=== PATIENT | female | born 1940 | race Caucasian/White ===

== ENCOUNTER → 2016-05-15 | Outpatient (CLI) | payer MEDICARE, BC | LOC: MAMMO | DX: Z12.31 Encounter for screening mammogram for malignant neoplasm of breast (principal) ==

== ENCOUNTER → 2016-05-15 | Outpatient (CLI) | payer MEDICARE, BC | LOC: RAD 05-01 09:16 | DX: Z13.820 Encounter for screening for osteoporosis (principal); M85.80 Other specified disorders of bone density and structure, unspecified site; M85.89 Other specified disorders of bone density and structure, multiple sites ==

== ENCOUNTER → 2019-08-05 | Outpatient (CLI) | payer MEDICARE, BC | LOC: MAMMO 13:32 | DX: Z12.31 Encounter for screening mammogram for malignant neoplasm of breast (principal) ==

== ENCOUNTER 2021-02-18 20:40 | Emergency (ER) | payer MEDICARE, BC ==
[~2021-02-18] VITALS: Ht 154.9 cm; Wt 47.7 kg
[2021-02-18] MEDS ORDERED: PRILOSEC OTC20 MG PO (20:48)
[2021-02-18] MEDS ORDERED: SYNTHROID0.075 MG PO (20:48)
[2021-02-18] MEDS ORDERED: ESTRACE1 M1 PO (20:49)
[2021-02-18] MEDS ORDERED: ULTRAM50 M1 PO (20:49)
[2021-02-18] MEDS ORDERED: CLONIDINE HYDR0.1 MG PO (20:50)
[2021-02-18] MEDS ORDERED: COZAAR 50MG50 MG/TAB PO (20:50)
[2021-02-18 22:08] LABS: HEMATOCRIT 31.2 % (37.0-47.0); HEMOGLOBIN 10.5 g/dL (12.5-16.0); MEAN CELL VOLUME 97 fl (78-100); MEAN CORPUSCULAR HEMOGLOBIN 33 pg (27-31); MEAN CORPUSCULAR HGB CONC 34 g/dL (33-37); MEAN PLATELET VOLUME 10.5 fl (7.4-10.4); PLATELET COUNT 185 K/mm3 (130-400); RED BLOOD COUNT 3.21 M/mm3 (4.10-5.30); RED CELL DISTRIBUTION WIDTH 11.6 % (11.5-14.5); WHITE BLOOD COUNT 4.9 K/mm3 (4.8-10.8)
[2021-02-18 22:17] LABS: ALBUMIN 3.5 g/dL (3.4-4.8)
[2021-02-18 22:18] LABS: POTASSIUM 3.2 mmol/L (3.5-5.1)
[2021-02-18 22:19] LABS: CALCIUM 8.1 mg/dL (8.3-10.5)
[2021-02-18 22:20] LABS: TOTAL PROTEIN 5.5 g/dL (6.2-8.1)
[2021-02-18 22:22] LABS: TOTAL BILIRUBIN 0.3 mg/dL (0.2-1.2)
[2021-02-18 22:37] LABS: LYMPHOCYTE 5 % (20-51); NEUTROPHILS 91 % (42-75)
[2021-02-18 22:38] LABS: MICROCYTOSIS 1+; MONOCYTE 4 % (3-10); OVALOCYTES 1+
[2021-02-18] MEDS ORDERED: THORAZINE 225 MG/TAB PO (23:23)
[2021-02-19 08:12] VITALS: BP 144/75
== END 2021-02-19 09:40 | disposition home or self-care (01) ==
LOC: ED 20:40
PROVIDERS: Nurse Practitioner Family
DX: U07.1 COVID-19 (principal); R53.83 Other fatigue; Z88.2 Allergy status to sulfonamides
CPT/HCPCS: J1885; J2405; J3230

== ENCOUNTER 2021-03-16 17:46 | Emergency (ER) | payer MEDICARE, BC ==
[~2021-03-16] VITALS: Wt 52.3 kg
[~2021-03-16 17:46] MED LIST: CLONIDINE HYDR0.1 MG PO; COZAAR 50MG50 MG/TAB PO; ESTRACE1 M1 PO; PRILOSEC OTC20 MG PO; SYNTHROID0.075 MG PO; THORAZINE 225 MG/TAB PO; ULTRAM50 M1 PO
[2021-03-16] MEDS ORDERED: PHENERGAN 25 TA25 MG PO (18:16)
[2021-03-16] MEDS ORDERED: CYCLOBENZ5 MG PO ×2 (18:16→18:20)
[2021-03-16] MEDS ORDERED: BUSPIRONE HYDRO10 MG PO (18:18)
[2021-03-16] MEDS ORDERED: THORAZINE 225 MG/TAB PO (18:19)
[2021-03-16 18:20] LABS: ALBUMIN 3.3 g/dL (3.4-4.8); POTASSIUM 3.6 mmol/L (3.5-5.1)
[2021-03-16] MEDS ORDERED: ESTRACE 1MG1 MG/TAB PO (18:20)
[2021-03-16] MEDS ORDERED: LOSARTAN POTASS50 M1 PO (18:20)
[2021-03-16] MEDS ORDERED: LEVOTHYROXIN0.075 MG PO (18:20)
[2021-03-16] MEDS ORDERED: CLONIDINE HYDR0.1 MG PO (18:20)
[2021-03-16 18:21] LABS: CALCIUM 8.7 mg/dL (8.3-10.5)
[2021-03-16] MEDS ORDERED: PRILOSEC 20MG20 MG PO (18:21)
[2021-03-16] MEDS ORDERED: TRAMADOL 50 MG TAB PO (18:21)
[2021-03-16] MEDS ORDERED: ZOFRAN ODT4 MG PO (18:21)
[2021-03-16] MEDS ORDERED: PROGESTERONE100 MG PO (18:21)
[2021-03-16 18:23] LABS: TOTAL PROTEIN 6.3 g/dL (6.2-8.1)
[2021-03-16 18:24] LABS: TOTAL BILIRUBIN 0.5 mg/dL (0.2-1.2)
[2021-03-16 18:33] LABS: PH-URINE 6.5 (5.0 - 8.0); URINE APPEARANCE HAZY; URINE BILIRUBIN NEGATIVE (NEGATIVE); URINE BLOOD NEGATIVE (NEGATIVE); URINE COLOR YELLOW; URINE GLUCOSE NEGATIVE (NEGATIVE); URINE KETONE 2+ (NEGATIVE); URINE LEUKOCYTE ESTERASE NEGATIVE (NEGATIVE); URINE NITRATE NEGATIVE (NEGATIVE); URINE PROTEIN(semi-quant) 1+ (NEGATIVE); URINE UROBILINOGEN NORMAL (NORMAL)
[2021-03-16 21:43] VITALS: BP 183/88
== END 2021-03-16 21:43 | disposition home or self-care (01) ==
LOC: ED 17:46
PROVIDERS: Nurse Practitioner
DX: K59.00 Constipation, unspecified (principal); I10 Essential (primary) hypertension; Z20.822 Contact with and (suspected) exposure to COVID-19; Z79.899 Other long term (current) drug therapy
CPT/HCPCS: J2405; J2550; J7030

== ENCOUNTER 2021-05-19 19:14 | Emergency (ER) | payer MEDICARE, BC ==
[~2021-05-19] VITALS: Ht 154.9 cm; Wt 52.3 kg
[~2021-05-19 19:14] MED LIST changes: +BUSPIRONE HYDRO10 MG PO; +CYCLOBENZ5 MG PO; +ESTRACE 1MG1 MG/TAB PO; +LEVOTHYROXIN0.075 MG PO; +LOSARTAN POTASS50 M1 PO; +PHENERGAN 25 TA25 MG PO; +PRILOSEC 20MG20 MG PO; +PROGESTERONE100 MG PO; +TRAMADOL 50 MG TAB PO; +ZOFRAN ODT4 MG PO
[2021-05-19 20:29] LABS: HEMATOCRIT 32.8 % (37.0-47.0); HEMOGLOBIN 10.8 g/dL (12.5-16.0); MEAN CELL VOLUME 93 fl (78-100); MEAN CORPUSCULAR HEMOGLOBIN 31 pg (27-31); MEAN CORPUSCULAR HGB CONC 33 g/dL (33-37); MEAN PLATELET VOLUME 10.2 fl (7.4-10.4); PLATELET COUNT 290 K/mm3 (130-400); RED BLOOD COUNT 3.53 M/mm3 (4.10-5.30); RED CELL DISTRIBUTION WIDTH 14.3 % (11.5-14.5); WHITE BLOOD COUNT 7.8 K/mm3 (4.8-10.8)
[2021-05-19 20:39] LABS: ALBUMIN 3.7 g/dL (3.4-4.8); POTASSIUM 3.2 mmol/L (3.5-5.1)
[2021-05-19 20:40] LABS: CALCIUM 8.7 mg/dL (8.3-10.5)
[2021-05-19 20:42] LABS: TOTAL PROTEIN 6.1 g/dL (6.2-8.1)
[2021-05-19 20:43] LABS: TOTAL BILIRUBIN 0.6 mg/dL (0.2-1.2)
[2021-05-19 20:58] VITALS: BP 126/73
[2021-05-19 21:01] LABS: BAND 11 % (0-10); LYMPHOCYTE 6 % (20-51); MONOCYTE 4 % (3-10); NEUTROPHILS 78 % (42-75)
== END 2021-05-19 20:58 | disposition other institution (70) ==
LOC: ED 19:14
PROVIDERS: Family Medicine
DX: J18.1 Lobar pneumonia, unspecified organism (principal); Z86.16 Personal history of COVID-19; Z88.2 Allergy status to sulfonamides
CPT/HCPCS: J0456; J0696; J7050

== ENCOUNTER 2021-05-19 20:58 | Inpatient (IN) | payer MEDICARE, BC ==
[~2021-05-19] VITALS: Ht 154.9 cm; Wt 49.9 kg
[2021-05-19 22:26] VITALS: BP 128/73
[2021-05-20 00:25] LABS: URINE APPEARANCE CLEAR; URINE COLOR YELLOW
[2021-05-20 00:26] LABS: URINE BILIRUBIN NEGATIVE (NEGATIVE); URINE BLOOD NEGATIVE (NEGATIVE); URINE GLUCOSE NEGATIVE (NEGATIVE); URINE KETONE NEGATIVE (NEGATIVE); URINE LEUKOCYTE ESTERASE NEGATIVE (NEGATIVE); URINE NITRATE NEGATIVE (NEGATIVE); URINE PROTEIN(semi-quant) 1+ (NEGATIVE); URINE UROBILINOGEN NORMAL (NORMAL); URINE WBC 0-1 /hpf (0-3)
[2021-05-20 06:02] VITALS: BP 114/72
[2021-05-20 10:13] VITALS: BP 103/61
[2021-05-20 10:43] LABS: HEMATOCRIT 27.8 % (37.0-47.0); HEMOGLOBIN 9.2 g/dL (12.5-16.0); RED BLOOD COUNT 2.94 M/mm3 (4.10-5.30); RED CELL DISTRIBUTION WIDTH 14.3 % (11.5-14.5); WHITE BLOOD COUNT 14.5 K/mm3 (4.8-10.8)
[2021-05-20 13:47] VITALS: BP 99/62
[2021-05-20 17:26] VITALS: BP 124/71
[2021-05-20 22:08] VITALS: BP 106/64
[2021-05-21 05:31] VITALS: BP 135/73
[2021-05-21 10:00] VITALS: BP 106/65
[2021-05-21] MEDS ORDERED: ZITHROMAX 250M250 MG PO (12:36)
[2021-05-21] MEDS ORDERED: CEFDINIR300 MG PO (12:38)
[2021-05-21 14:00] VITALS: BP 147/75
== END 2021-05-21 17:17 | disposition home or self-care (01) | DRG 194 ==
LOC: MED/SURG 20:58
PROVIDERS: ADMIT Family Medicine
DX: J18.9 Pneumonia, unspecified organism (principal); I47.1 Supraventricular tachycardia; I10 Essential (primary) hypertension; E87.6 Hypokalemia; K21.9 Gastro-esophageal reflux disease without esophagitis; E03.9 Hypothyroidism, unspecified; E86.0 Dehydration; G89.29 Other chronic pain; M54.50 Low back pain, unspecified; Z86.16 Personal history of COVID-19; Z90.710 Acquired absence of both cervix and uterus; Z88.2 Allergy status to sulfonamides; Z79.891 Long term (current) use of opiate analgesic
CPT/HCPCS: J0456; J0696; J1650; J1885; J2060; J3230; J3480; J7050

== ENCOUNTER → 2023-06-20 | Outpatient (CLI) | payer MEDICARE, BC ==
[~2023-06-20] MED LIST changes: +CEFDINIR300 MG PO; +ZITHROMAX 250M250 MG PO
== END ==
LOC: RAD 10:41 → MAMMO 11:00
DX: M85.851 Other specified disorders of bone density and structure, right thigh (principal); M85.852 Other specified disorders of bone density and structure, left thigh; Z78.0 Asymptomatic menopausal state